=== PATIENT | male | born 2005 | race Two or more races ===

== ENCOUNTER 2023-08-22 10:14 | Outpatient (REF) | payer OTHER, SELFPAY ==
--- NOTE | 2023-08-22 | ECG_ITS ---
Test Reason : wpw, cp, dizziness Blood Pressure : / mmHG Vent. Rate : 073 BPM Atrial Rate : 073 BPM P-R Int : 124 ms QRS Dur : 080 ms QT Int : 336 ms P-R-T Axes : 068 075 030 degrees QTc Int : 370 ms Normal sinus rhythm with sinus arrhythmia Normal ECG No previous ECGs available Referred By: Chadd Reyes Electronically Signed By:Stanley Benavidez
--- NOTE | ~2023-08-22 | XR_ITS ---
EXAMINATION: XR CHEST CLINICAL INFORMATION: Chest pain and dizziness. Patient states he has metal in his neck from prior surgery. COMPARISON: None available. TECHNIQUE: 2 views of the chest were obtained. FINDINGS: The lungs are well inflated. No pleural effusion. Mild S-shaped thoracolumbar scoliosis. Heart size is normal. Radiodense metallic material partially included in images along the upper neck/thoracic inlet region, just to the right of midline. Correlation with clinical/surgical history recommended. No focal consolidation to suggest pneumonia. XR/XR chest 2V IMPRESSION: 1. No evidence of pneumonia. 2. Radiodense metallic material partially included in images along the upper neck/thoracic inlet region, just to the right of midline. Correlation with clinical/surgical history recommended.
== END 2023-08-22 10:15 | disposition home or self-care (01) ==
LOC: HO.XRAY 10:14
PROVIDERS: Visit Provider Family Medicine Adult Medicine
DX: R07.9 Chest pain, unspecified (principal)
CPT/HCPCS: 71046; 93005

== ENCOUNTER → 2023-08-22 10:29 | Outpatient (BNV) | payer OTHER, SELFPAY | PROVIDERS: Visit Provider Internal Medicine Cardiovascular Disease | DX: R07.9 Chest pain, unspecified (principal) | CPT/HCPCS: 93010 ==

== ENCOUNTER 2023-12-23 09:21 | Outpatient (AMB) | payer OTHER, SELFPAY ==
[2023-12-23 09:53] VITALS: BP 120/78; PULSE 79; BMI 16.8
--- NOTE | 2023-12-23 09:53 | MHC.OFFVIS ---
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 monika/cp Intake Note: New patient hx WPW c/o chest pain sometimes in the morning Consulting Solution Director Required: No Allergies No Known Allergies Allergy (Verified 12/23/23 09:57) Medication List - Last Reconciled 12/23/23 by Sheldon Muñoz MD albuterol sulfate 90 mcg/actuation (Ventolin HFA) inhalation HPI Comments Details: Thank you for referring Luis Alfredo in cardiology consultation today for symptoms of palpitation and chest pain. 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 At that time was having symptoms of palpitations. Since then he is done well but more recently he started having symptoms of palpitation again. Describes chest pain followed by rapid heart rate. The symptoms happen when he is playing basketball and also happen at rest. Symptoms started abruptly and can last for 5 minutes and stop abruptly. There is no clear trigger factors. Does not try to do anything to break his arrhythmia. 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 Patient denies any associated shortness of breath, lightheadedness, syncope. He describes episodes of lightheadedness when he gets up suddenly and has visual changes and has to usually sit down and symptoms resolved. He has never had a fainting episode. Denies any exertional chest pain, shortness of breath. He denies any use of ozhc-epd-rehrdbs medication, street drugs, excessive caffeine or alcohol intake. [facility] Surgical History History of cardiac radiofrequency ablation (RFA) Family History Father No problems noted. Mother No problems noted. Social History Patient Tobacco Use Status: Never used Tobacco Review of Systems Const Denies chills, Denies daytime sleepiness, Denies fatigue, Denies fever(s), Denies frequent falls, Denies poor appetite, Denies snoring, Denies stops breathing during sleep, Denies weakness, Denies weight gain and Denies weight loss Eyes Denies loss of vision ENT Denies dizziness and Denies hearing loss Card Denies chest pain, Denies claudication, Denies leg edema, Denies lightheadedness, Denies palpitations, Denies dyspnea, Denies dyspnea on exertion and Denies orthopnea Resp Denies cough, Denies excessive phlegm production, Denies dyspnea, Denies dyspnea on exertion, Denies snoring and Denies wheezing GI Denies abdominal pain, Denies hematochezia, Denies change in bowel habits, Denies nausea and Denies vomiting Denies dysuria and Denies urinary frequency Musc Denies arthralgias, Denies muscle weakness, Denies numbness and Denies other (frequent falls) Skin/Breast Denies nail changes and Denies rash Neuro Denies Abnormal speech present, Denies dizziness, Denies frequent falls, Denies loss of vision, Denies memory loss, Denies numbness and Denies weakness Psych Denies depression and Denies memory loss Endo Denies fatigue and Denies palpitations Romeo/Lymph Reports easy bruising and Reports other (anemia) Aller/Immun Denies wheezing Physical Exam Vital Signs: Last Vital Signs Pulse 79 12/23/23 09:53 BP 120/78 12/23/23 09:53 BMI result Body Mass Index 16.8 Const General: cooperative, comfortable, no acute distress, alert, awake and Physically active Nutritional Appearance: thin Orientation/consciousness: patient oriented x3 Limitations: no limitations HEENT Head: Yes normocephalic and Yes atraumatic Neck Neck: Yes trachea midline, Yes supple and Yes no JVD Resp Effort & Inspection: normal respiratory effort Auscultation: clear to auscultation bilaterally Cardio Jugular venous distension: no JVD Palpation: normal PMI Rate: regular rate Rhythm: regular rhythm Heart sounds: S1 normal heart sound present, S2 normal heart sound present, no click, no gallops, no murmurs and no rubs GI Auscultation: normal bowel sounds Skin General skin exam: no rashes or lesions noted Neuro General: patient oriented x3 and no focal motor deficits Speech: No Abnormal speech present Extrem General: Yes no clubbing, cyanosis or edema Psych Appearance: grossly normal Office Procedures EKG Details: EKG today shows normal sinus rhythm normal EKG with normal axis and normal intervals with no preexcitation [id number], Complete Assessment & Plan Assessment & Plan (1) Palpitations: Code(s): R00.2 - Palpitations Category: Medical Plan: Symptoms of palpitation this young man which has sudden onset suggestive SVT. Less likely atrial fibrillation. Treatment based on the diagnosis. Would suggest a 14 day Holter monitor to assess for the symptoms. He has associated chest pain although likelihood of myocardial ischemia is extremely low. Would suggest exercise stress test to evaluate for exercise-induced arrhythmias well. Also obtain echocardiogram to evaluate for any structural changes which can be associated with WPW syndrome in the past although in the past his echocardiogram have been benign. His orthostatic lightheadedness appear to be due to relative hypovolemia. He is advised to increase his water and salt intake. Orthostatic precautions were discussed. Till we perform full testing I would avoid participating in any strenuous physical activity and sports such as basketball. He is also advised to avoid stimulants such as caffeine, alcohol and any street drugs. He understands and agrees. Will follow up in the clinic in 6 weeks time, sooner p.r.n.. Thank you for allowing me to partake in his care Orders: Orders CA echo transthoracic complete Today R00.2 - Palpitations CA stress test Today R00.2 - Palpitations ECG 14 day holter monitor Today R00.2 - Palpitations Coding Level of Care Code New Pt Level 4 (18998) Diagnoses Palpitations R00.2 CPT Codes EKG - CPT: 69378-[id number], Complete ([id number])
== END 2023-12-23 10:28 | disposition home or self-care (01) ==
PROVIDERS: Visit Provider Internal Medicine Cardiovascular Disease
DX: R00.2 Palpitations (principal)
CPT/HCPCS: 93010; 99204

== ENCOUNTER → 2023-12-23 09:21 | Outpatient (BNVA) | payer OTHER, SELFPAY | PROVIDERS: Visit Provider Internal Medicine Cardiovascular Disease | DX: R00.2 Palpitations (principal) | CPT/HCPCS: 93005; 99202 ==

== ENCOUNTER → 2023-12-30 13:28 | Outpatient (REF) | payer OTHER, SELFPAY ==
--- NOTE | 2023-12-30 13:34 | HM_ITS ---
* Total monitoring time about 16 days. * Underlying rhythm is sinus with an average rate of 83/Min. Some strips with ST elevation suggestive of early repolarization. Change in QRS morphology in different strips of uncertain significance. * Sinus tachycardia about 16% of the time. * No significant supraventricular or ventricular ectopy. * No significant pauses or AV blocks. * No patient markers. * Diary entries during signal loss. MTDD
== END ==
LOC: HO.CARD 13:28
PROVIDERS: Visit Provider Internal Medicine Cardiovascular Disease
DX: R00.2 Palpitations (principal)
CPT/HCPCS: 93246

== ENCOUNTER → 2023-12-30 13:34 | Outpatient (BNV) | payer OTHER, SELFPAY | PROVIDERS: Visit Provider Internal Medicine | DX: R00.0 Tachycardia, unspecified (principal) | CPT/HCPCS: 93248 ==

== ENCOUNTER 2024-07-16 09:02 | Emergency (ER) | payer OTHER, SELFPAY ==
--- NOTE | ~2024-07-16 | XR_ITS ---
EXAMINATION: XR CHEST 2 VIEWS HISTORY: dyspnea COMPARISON: Comparison is made with the prior examination dated 08/22/2023. FINDINGS: PA and lateral views of the chest are submitted. The lungs are expanded and clear. There is no pleural effusion, pneumothorax, or pulmonary vascular congestion. The heart is normal in size. There is mild levoscoliosis of the lower thoracic spine. Again seen is metallic material in the right neck. XR/XR chest 2V IMPRESSION: No acute cardiopulmonary abnormality. Electronically signed by: Doug Resendez MD 07/16/2024 09:43 AM EST
[2024-07-16 09:14] VITALS: BP 104/74; PULSE 96; RESP 18; TEMP 36.8; O2SAT 99; BMI 16.3
--- NOTE | 2024-07-16 09:19 | ECG_ITS ---
Test Reason : dyspnea Blood Pressure : */* mmHG Vent. Rate : 85 BPM Atrial Rate : 85 BPM P-R Int : 128 ms QRS Dur : 88 ms QT Int : 322 ms P-R-T Axes : 71 69 15 degrees QTcB Int : 383 ms Normal sinus rhythm Nonspecific ST abnormality Abnormal ECG When compared with ECG of 22-Aug-2023 10:29, No significant change was found Referred By: Generic ED Physician Electronically Signed By: CRYSTAL DUMONT
--- NOTE | 2024-07-16 09:38 | ED_ITS ---
HPI - SOB/Dyspnea General Chief Complaint: Dyspnea Stated Complaint: SOB Bilateral rib pain Time Seen by Provider: 07/16/24 09:30 Source: patient Mode of arrival: ambulatory Limitations: no limitations History of Present Illness ED Provider: MARTI Benson HPI Narrative: This is a 18-year-old male past medical history significant for palpitations, Alexandru Parkinson White syndrome presenting to the emergency department with sudden onset chest pain and shortness breath that started this morning. Patient reports this woke him from his sleep reports he woke up and was having pain in his chest particularly with deep breathing the pain is in the substernal region and wraps around to his ribs and sometimes into his back. Reports pain is severe and he is quite uncomfortable. No sick contacts. He tells me that he has never had pain like this before. Denies numbness, tingling, fevers, chills, nausea, vomiting, abdominal pain, diarrhea Related Data Home Medications ?Medication ?Instructions ?Recorded ?Confirmed albuterol sulfate 90 mcg/actuation inhalation 12/23/23 12/23/23 aerosol inhaler (Ventolin HFA) Previous Rx's ?Medication ?Instructions ?Recorded ketorolac 10 mg tablet 10 mg PO TID PRN pain 5 days #15 07/16/24 tabs Allergies Allergy/AdvReac Type Severity Reaction Status Date / Time No Known Allergies Allergy Verified 07/16/24 09:17 Review of Systems 2 Review of Systems: Yes all other systems are reviewed and are negative [facility] Past Medical History Attestation statement: The following information was validated with the patient. Source: old records reviewed and nursing notes reviewed Surgical History History of cardiac radiofrequency ablation (RFA) Family History Family History Father No problems noted. Mother No problems noted. Social History Social History Patient Tobacco Use Status: Never used Tobacco Advance Directives: No Advance Directives Information Provided: No Physical Exam 2 Vital Signs: Vital Signs: Last Vital Signs Temp 98.1 F 07/16/24 14:25 Pulse 95 07/16/24 14:25 Resp 18 01/31/25 14:25 BP 110/76 07/16/24 14:25 Pulse Ox 100 07/16/24 14:25 O2 Del Method Room Air 07/16/24 14:25 BMI result Body Mass Index 16.3 vss Appearance: Alert.? Oriented X3.? No acute distress.? Head: Normocephalic, atraumatic, no step-offs or deformities Eyes: Pupils equal, round and reactive to light.? Neck: Normal inspection.? Neck supple.? CVS: Normal heart rate and rhythm.? Pulses normal.? Respiratory: No respiratory distress.? Breath sounds normal.? Abdomen: Soft and nontender.? Skin: Skin warm and dry.? Normal skin color.? Normal skin turgor.? Extremities: No lower extremity edema.? No calf ttp. 5/5 strength to bilateral upper and lower extremities Neuro: Oriented X 3.? No motor deficit.? No sensory deficit. CN 2-12 intact Course Reevaluation(s) Reevaluation #1: Chest x-ray no acute cardiopulmonary abnormalities. Flu, COVID, RSV negative. CBC with leukopenia. Chemistry pending. Time: 10:24 Reevaluation #2: Chemistry negative, troponin negative x2. D-dimer negative. Patient states he is feeling slightly better however his chest wall feels sore. This is likely costochondritis or noncardiac related chest pain. Advised for him to return with any new or worsening symptoms. Re-evaluated him no tachycardia unlikely WPW. Educated patient on diagnosis and treatment plan, answered all question, patient verbalizes understanding. At this time patient will be discharged home, advised to return with new or worsening symptoms. Educated on worrisome signs and symptoms and when to return. At this time I feel comfortable discharge home. Time: 14:28 Medications Administered Discontinued Medications Generic Name Dose Route Start Last Admin Trade Name Freq PRN Reason Stop Dose Admin Albuterol Sulfate 2.5 mg/ 5 mg 07/16/24 11:56 07/16/24 12:05 Albuterol Sulfate 2.5 mg INHALE 07/16/24 11:57 5 mg ONCE ONE Administration Ketorolac Tromethamine 30 mg 07/16/24 11:57 07/16/24 12:08 Ketorolac Tromethamine 30 Mg/Ml Vial IM 07/16/24 11:58 30 mg ONCE ONE Administration Medical Decision Making Medical Decision Making [facility] Narrative: 1022 18-year-old male presents with chest pain, shortness of breath particularly with deep breathing. History of Ecvzf-Kfytmovwz-Xbchy . The chest pain awoke him from his sleep and is still present. Physical exam with anterior chest wall tenderness to palpation. History and physical exam concerning for dysrhythmia versus pulmonary embolism versus WPW versus costochondritis as most likely. ACS will be ruled out although less likely. Noncardiac related chest pain also possible. Plan labs, imaging, EKG, troponin and D-dimer. Differential Diagnosis Differential Diagnoses: The differential diagnosis associated with the presentation includes (History and physical exam concerning for dysrhythmia versus pulmonary embolism versus WPW versus costochondritis as most likely. ACS will be ruled out although less likely. Noncardiac related chest pain also possible.) Admission/Observation Consideration of admission/observation: Escalation of care including admission/observation considered Lab Data [facility] Lab Attestation statement: I reviewed the patient's lab results. 07/16/24 10:01 07/16/24 10:01 Labs: Lab Results 07/16/24 07/16/24 07/16/24 Range/Units 09:31 10:01 12:54 WBC 4.2 L (4.8-10.8) X10*3/uL RBC 4.77 (4.60-5.80) X10*6/uL Hgb 15.0 (14.0-18.0) g/dl Hct 42.9 (42.0-52.0) % MCV 89.9 (80.0-98.0) fL MCH 31.4 (27.0-33.0) pg MCHC 35.0 (31.0-36.0) g/dl RDW 12.3 (11.0-16.0) % Plt Count 221 (160-400) X10*3/uL MPV 9.4 (9.4-12.4) fL Immature Gran % (Auto) 0.2 (0.0-0.4) % Neut % (Auto) 61.2 (45-73) % Lymph % (Auto) 27.3 (20-40) % Stone % (Auto) 8.6 (2-11) % Eos % (Auto) 1.7 (0-4) % Baso % (Auto) 1.0 (0-2) % Lymph # (Auto) 1.2 (1.2-4.9) X10*3/uL Stone # (Auto) 0.4 (0.1-1.2) X10*3/uL Eos # (Auto) 0.1 (0.0-0.4) X10*3/uL Baso # (Auto) 0.0 (0.0-0.2) X10*3/uL Abs Immat Gran (auto) 0.01 (0.00-0.03) X10*3/uL Absolute Neuts (auto) 2.6 (2.0-8.3) x10*3/uL Absolute Nucleated RBC 0.000 (0.0-0.012) X10*3/uL Nucleated RBC % (auto) 0.0 (0.0-0.2) /100WBC PT 11.6 (10.9-12.4) SEC INR 1.0 (0.9-1.1) D-Dimer High Sensitivty < 150 NG/ML Sodium 140 (135-145) mmol/L Potassium 4.2 (3.3-5.1) mmol/L Chloride 110 H (96-108) mmol/L Carbon Dioxide 24 (22-29) mmol/L Anion Gap 10 L (12-20) BUN 12 (9-16) mg/dL Creatinine 0.80 (0.5-1.4) mg/dL Estim Creat Clear Calc 107.5 Estimated GFR > 60 Random Glucose 83 (60-115) mg/dL Calcium 9.3 (8.4-10.2) mg/dL Magnesium 2.3 (1.6-2.6) mg/dL Total Bilirubin 0.5 (0.0-1.0) mg/dL AST 23 (5-37) U/L ALT 14 (0-40) U/L Alkaline Phosphatase 55 (39-117) U/L Troponin I High Sens < 2.7 < 2.7 (<3.5-35.0) ng/L Total Protein 7.3 (6.5-8.0) g/dL Albumin 4.4 (3.5-5.0) g/dL Influenza Type A (PCR) NEGATIVE (Negative) Influenza Type B (PCR) NEGATIVE (Negative) RSV RNA Qual (PCR) NEGATIVE (Negative) SARS-CoV-2 RNA (RT-PCR) NEGATIVE (Negative) Independent Interpretation I performed an independent interpretation of an: EKG (Ventricular rate of 85, IL normal, QRS normal, QT/QTC normal.) and Plain X-Ray (XR/XR chest 2V IMPRESSION: No acute cardiopulmonary abnormality.) Radiology Impression Discussion of test interpretation with radiology: I have reviewed the radiologist's reading. External Record Review External record reviewed: Inpatient record, Office record, Outpatient record, Prior outpatient labs, Prior outpatient radiology and Primary care record Chronic Conditions Patient?s care impacted by: Other (wpw) Critical Care Time Critical Care Time Critical Care Time: Yes Total Critical Care Time: 35 Attestation: I attest to this time spent taking care of the patient, obtaining history, physical, reviewing labs, imaging, treatment of patients condition +/- specialist/hospitalist consult Discharge Plan Discharge Clinical Impression: Chest pain, Shortness of breath, Anterior chest wall pain Patient Disposition: Home, Self-Care Instructions: Chest Pain (ED), Chest Wall Pain (ED) Additional Instructions: Take your medications as prescribed. If you were prescribed antibiotics today, it is important that you take your medication to their entirety, do not skip any doses, do not finish them early. Follow-up with your primary care provider this week. Return to the emergency department with new or worsening symptoms. Such as fevers, chills, chest pain, shortness of breath, nausea, vomiting, dizziness, headache, vision changes, lethargy In case of emergency call 911 Prescriptions: New ketorolac 10 mg tablet 10 mg PO TID PRN (Reason: pain) 5 Days Qty: 15 0RF Rx Instructions: Tolerated IM or IV in department No Action albuterol sulfate [Ventolin HFA] 90 mcg/actuation HFA aerosol inhaler inhalation Referrals: Physician,None [Primary Care Provider] - 2 days Stand Alone Forms: Work/School Release Interventions: ED Discharge Assessment Last Done: 07/16/24 14:28 Print Language: Croatian
[2024-07-16 10:09] LABS: MANUAL DIFF FLAG NO
[2024-07-16 10:11] LABS: Eosinophils Absolute Auto 0.1 X10*3/uL (0.0-0.4); Eosinophils Percent Auto 1.7 % (0-4); Hematocrit 42.9 % (42.0-52.0); Imm Gran Abs Auto 0.01 X10*3/uL (0.00-0.03); Imm Gran Pct Auto 0.2 % (0.0-0.4); Lymphocytes Absolute Auto 1.2 X10*3/uL (1.2-4.9); Lymphocytes Percent Auto 27.3 % (20-40); Mean Corpuscular Hemoglobin 31.4 pg (27.0-33.0); Mean Corpuscular Volume 89.9 fL (80.0-98.0); Mean Platelet Volume 9.4 fL (9.4-12.4); Monocytes Absolute Auto 0.4 X10*3/uL (0.1-1.2); Monocytes Percent Auto 8.6 % (2-11); Neutrophils Absolute Auto 2.6 x10*3/uL (2.0-8.3); Neutrophils Percent Auto 61.2 % (45-73); Platelet Count 221 X10*3/uL (160-400); Red Blood Count 4.77 X10*6/uL (4.60-5.80); Red Cell Distribution Width 12.3 % (11.0-16.0); White Blood Count 4.2 X10*3/uL (4.8-10.8)
[2024-07-16 10:14] LABS: Influenza A PCR NEGATIVE (Negative); Influenza B PCR NEGATIVE (Negative); Resp Syncy Virus RNA Qual PCR NEGATIVE (Negative); SARS COV2 PCR INHOUSE NEGATIVE (Negative)
--- OUTSIDE RECORDS SUMMARY | 2024-07-16 10:24 | XMS_ITS | Clinical Summary ---
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 30 tablet 05/11/2024 Active Active Problems No known active problems Encounters Date Type Department Care Team Description 05/11/2024 1:51 PM EST - 05/11/2024 3:[address] [facility] Emergency [address] [place] [address] COVID-19 (Primary Dx) Discharge Disposition: Home or Self Care from Last 3 Months Medical History Medical History Date Comments Asthma Dlwwh-Ddhwhurqt-Lkzjm syndrome Social History Tobacco Use Types Packs/Day Years Used Date Smoking Tobacco: Never Smokeless Tobacco: Never Tobacco Cessation:Counseling Given: Not Answered Alcohol Use Standard Drinks/Week Comments Never 0 (1 standard drink = 0.6 oz pur e alcohol) Sex and Gender Information Value Date Recorded Sex Assigned at Male 05/11/2024 2:01 PM EST Gender Identity Male 05/11/2024 2:01 PM EST Sexual Orientation Not on file Job Start Date Occupation Industry Not on file Not on file Not on file Obstetrics History Last Filed Vital Signs Vital Sign Reading Time Taken Comments Blood Pressure 107/81 05/11/2024 1:17 PM EST Pulse 90 05/11/2024 1:17 PM EST Temperature 37.4 ??C (99.3 ??F) 05/11/2024 1:17 PM ES T Respiratory Rate 20 05/11/2024 1:17 PM EST Oxygen Saturation - - Inhaled Oxygen Concentration - - Weight 49.9 kg (110 lb) 05/11/2024 1:17 PM EST Height 175.3 cm (5' 9 ) 05/11/2024 1:17 PM EST Body Mass Index 16.24 05/11/2024 1:17 PM EST Plan of Treatment Health Maintenance Due Date Last Done Comments Pneumococcal Vaccine: Pediatrics (0 to 5 Years) and At-Risk Patients (6 to 64 Years) (1 of 1 - PPSV23 or PCV20) 09/19/2009 12/24/2004, 04/27/2004, 02/03/2004, Additional history exists Annual Well Child Visit (3-21 years old) 05/19/2022 Depression Screening 05/19/2022 HIV Screening 05/19/2022 Hepatitis C Screening 05/19/2022 Social Influencers of Health Screening 05/19/2022 COVID-19 Vaccine ( season) 2024 11/07/2020, 10/16/2020 Influenza Vaccine (#1) 2024 05/24/2015, 2013 DTaP,Tdap,and Td Vaccines (7 - Td or Tdap) 05/24/2025 05/24/2015, 10/22/2007, 12/24/2004, Additional history exists HIB Vaccines Completed 12/24/2004, 01/15, 2003 IPV Vaccines Completed 10/22/2007, 04/16, 02/03/2004, Additional history exists MMR Vaccines Completed 11/24/2007, 10/16/2004 Varicella Vaccines Completed 11/24/2007, 10/16/2004 Hepatitis B Vaccines Completed 04/14/2014, 01/11/2014, 12/10/2013, Additional history exists Hepatitis A Vaccines Completed 05/19/2014, 11/18/19 14 Meningococcal ACWY Vaccine Aged Out 05/24/2015 N o longer eligible based on patient's age to complete this topic HPV Vaccines Completed 01/04/2016, 02/2016, 05/24/2015 RSV Immunization Patients Under 20 months Aged Out No longer eligible based on patient's age to complete this topic Procedures Procedure Name Priority Date/Time Associated Diagnosis Comments RESPIRATORY VIRUS PANEL MOLECULAR STUDY STAT 05/11/2024 1:24 PM EST from Last 3 Months Results * (ABNORMAL) Respiratory virus panel molecular study (05/11/2024 1:24 PM EST) Pathologist [facility] Adenovirus Detection by PCR Not Detected Not Detected LAB MICROBIOLOGY METHOD 05/11/2024 2:35 PM EST [facility] Influenza A PCR Not Detected Not Detected LAB MICROBIOLOGY METHOD 05/11/2024 2:35 PM EST [facility] Influenza B PCR Not Detected Not Detected LAB MICROBIOLOGY METHOD 05/11/2024 2:35 PM EST [facility] Coronavirus 229E Not Detected Not Detected LAB MICROBIOLOGY METHOD 05/11/2024 2:35 PM EST [facility] Coronavirus HKU1 Not Detected Not Detected LAB MICROBIOLOGY METHOD 05/11/2024 2:35 PM [facility] Coronavirus OC43 Not Detected Not Detected LAB MICROBIOLOGY METHOD 05/11/2024 2:35 PM [facility] Coronavirus NL63 Not Detected Not Detected LAB MICROBIOLOGY METHOD 05/11/2024 2:35 PM [facility] Parainfluenza Virus 1 Not Detected Not Detected LAB MICROBIOLOGY METHOD 05/11/2024 2:35 PM [facility] Parainfluenza Virus 2 Not Detected Not Detected LAB MICROBIOLOGY METHOD 05/11/2024 2:35 PM [facility] Parainfluenza Virus 3 Not Detected Not Detected LAB MICROBIOLOGY METHOD 05/11/2024 2:35 PM [facility] Parainfluenza Virus 4 Not Detected Not Detected LAB MICROBIOLOGY METHOD 05/11/2024 2:35 PM [facility] RSV PCR Not Detected Not Detected LAB MICROBIOLOGY METHOD 05/11/2024 2:35 PM [facility] Human Metapneumovirus A and B Not Detected Not Detected LAB MICROBIOLOGY METHOD 05/11/2024 2:35 PM [facility] Rhinovirus/Entero virus Not Detected Not Detected LAB MICROBIOLOGY METHOD 05/11/2024 2:35 PM EST [facility] Bordetella pertussis Not Detected Not Detected LAB MICROBIOLOGY METHOD 05/11/2024 2:35 PM EST [facility] Bordetella parapertussis Not Detected Not Detected LAB MICROBIOLOGY METHOD 05/11/2024 2:35 PM [facility] Mycoplasma pneumo by PCR Not Detected Not Detected LAB MICROBIOLOGY METHOD 05/11/2024 2:35 PM EST [facility] Chlamydia pneumoniae Not Detected Not Detected LAB MICROBIOLOGY METHOD 05/11/2024 2:35 PM [facility] SARS COV-2 Detected(A ) Not Detected LAB MICROBIOLOGY METHOD 05/11/2024 2:35 PM [facility] Swab Both anterior nares / Unknown Non-blood Collection / Unknown 05/11/2024 1:24 PM EST 05/11/2024 1:28 PM EST [facility] - 05/11/2024 2:35 PM EST Testing was performed using the [employer] Respiratory Pathogen PCR Assay. All results must be correlated with the clinical findings. Results should not be used as the sole basis for diagnosis. False Negative results may occur from the presence of sequence variants in the region targeted by the assay or the presence of inhibitors. Results may be affected by concurrent antiviral/antimicrobial therapy or levels of organisms that are below the limit of detection. Omar Tomlinson DO LAB MICROBIOLOGY - GENERAL ORDERABLES [facility] [address] [place] [address], from Last 3 Months Care Teams Kick Press Operator Relationship Specialty Start Date End Date Physician, No Pcp PCP - General 05/11/24
[2024-07-16 10:35] LABS: Alanine Aminotransferase 14 U/L (0-40); Albumin Level 4.4 g/dL (3.5-5.0); Alkaline Phosphatase 55 U/L (39-117); Anion Gap 10 (12-20); Aspartate Amino Transferase 23 U/L (5-37); Bilirubin Total 0.5 mg/dL (0.0-1.0); Blood Urea Nitrogen 12 mg/dL (9-16); Calcium 9.3 mg/dL (8.4-10.2); Carbon Dioxide 24 mmol/L (22-29); Chloride 110 mmol/L (96-108); Creatinine Clr Calc Pharmacy 107.5; Estimated Glomerular Filt Rate > 60; Glucose Random 83 mg/dL (60-115); Magnesium 2.3 mg/dL (1.6-2.6); Potassium 4.2 mmol/L (3.3-5.1); Sodium 140 mmol/L (135-145); Total Protein 7.3 g/dL (6.5-8.0)
[2024-07-16 10:36] LABS: Prothrombin Time 11.6 SEC (10.9-12.4)
[2024-07-16 10:40] LABS: D Dimer High Sensitivity < 150 NG/ML
[2024-07-16 10:44] LABS: Troponin-I High Sensitivity < 2.7 ng/L (<3.5-35.0)
[2024-07-16 12:02] VITALS: BP 116/70; PULSE 88; RESP 18; TEMP 36.5; O2SAT 100
[2024-07-16] MEDS: Albuterol Sulfate 2.5 MG, Albuterol Sulfate (0.083%) 2.5 MG 5 MG INHALE (12:05)
[2024-07-16 12:07] VITALS: PULSE 88; RESP 18; O2SAT 99
[2024-07-16] MEDS: Ketorolac Tromethamine 30 MG/ML VIAL IM (12:08)
--- NOTE | 2024-07-16 12:08 | PC.NURSE ---
pt receiving breathing tx at this time. medication administered per provider order. effectiveness pending.
--- NOTE | 2024-07-16 12:51 | PC.NURSE ---
repeat troponin obtained/sent to lab by tech.
[2024-07-16 13:34] LABS: Troponin-I High Sensitivity < 2.7 ng/L (<3.5-35.0)
[2024-07-16 14:25] VITALS: BP 110/76; PULSE 95; RESP 18; TEMP 36.7; O2SAT 100
[2024-07-16 14:28] VITALS: BP 110/76; PULSE 95; RESP 18; TEMP 36.7; O2SAT 100
== END 2024-07-16 14:35 | disposition home or self-care (01) ==
PROVIDERS: Physician Assistant; Emergency Provider Emergency Medicine
DX: R06.02 Shortness of breath (principal); R00.2 Palpitations; R07.81 Pleurodynia; R94.31 Abnormal electrocardiogram [ECG] [EKG]; Z03.818 Encounter for observation for suspected exposure to other biological agents ruled out; Z79.899 Other long term (current) drug therapy
CPT/HCPCS: 0241U; 36415; 71046; 80053; 83735; 84484; 85025; 85379; 85610; 93005; 94640; 96372; 99284; J1885

== ENCOUNTER → 2024-07-16 09:19 | Outpatient (BNV) | payer OTHER, SELFPAY | PROVIDERS: Emergency Provider Emergency Medicine; Visit Provider Internal Medicine | DX: R94.31 Abnormal electrocardiogram [ECG] [EKG] (principal) | CPT/HCPCS: 93010 ==

== ENCOUNTER → 2024-07-16 09:19 | Outpatient (BNV) | payer OTHER, SELFPAY | PROVIDERS: Emergency Provider Emergency Medicine; Visit Provider Radiology Diagnostic Radiology | DX: R06.00 Dyspnea, unspecified (principal) | CPT/HCPCS: 71046 ==

== ENCOUNTER 2024-09-29 13:05 | Emergency (ER) | payer OTHER, SELFPAY ==
--- NOTE | ~2024-09-29 | XR_ITS ---
EXAMINATION: XR CHEST 2 VIEWS HISTORY: CP COMPARISON: Comparison is made with the prior examination dated 07/16/2024. FINDINGS: PA and lateral views of the chest are submitted. The lungs are expanded and clear. There is no pleural effusion, pneumothorax, or pulmonary vascular congestion. The heart is normal in size. The bones are intact. Again seen are coils in the right neck. XR/XR chest 2V IMPRESSION: No acute cardiopulmonary abnormality. Electronically signed by: Doug Resendez MD 09/29/2024 01:51 PM EDT
[2024-09-29 13:09] VITALS: BP 121/75; PULSE 89; RESP 16; TEMP 36.7; O2SAT 98; BMI 17.8
--- NOTE | 2024-09-29 13:14 | ED.GENADULT ---
HPI - General Adult General Chief complaint: Back Pain/Injury Stated complaint: Rib Pain (both sides), Back/Spine Pain Time Seen by Provider: 09/29/24 14:41 Source: patient, RN notes reviewed and old records reviewed Mode of arrival: ambulatory Limitations: no limitations History of Present Illness ED Provider: Easton HPI narrative: Patient is a 19-year-old male with history of Ouhjt-Aasobaogs-Dgdhv syndrome presenting to the emergency department with complaint of bilateral posterior rib pain for the past 2 months. He denies any URI symptoms or coughing prior to onset of rib pain. Denies recent fevers. Denies shortness of breath. Denies current chest pain or palpitations. Denies shortness of breath. Reports that this morning he developed lower back pain as well. Denies radiation of pain to lower extremities. Denies saddle anesthesia or bowel or bladder incontinence. Denies any urinary symptoms. Denies fall or other trauma. States he does not currently have a primary care provider. MD complaint: rib pain Onset (ago): month(s) Related Data Home Medications ?Medication ?Instructions ?Recorded ?Confirmed albuterol sulfate 90 mcg/actuation inhalation 12/23/23 12/23/23 aerosol inhaler (Ventolin HFA) Previous Rx's ?Medication ?Instructions ?Recorded ketorolac 10 mg tablet 10 mg PO TID PRN pain 5 days #15 07/16/24 tabs lidocaine 5 % topical patch 1 patch topical DAILY #15 ea 09/29/24 naproxen 500 mg tablet 500 mg PO BID #14 tabs 09/29/24 Allergies Allergy/AdvReac Type Severity Reaction Status Date / Time No Known Allergies Allergy Verified 09/29/24 13:12 Review of Systems Review of Systems: As per HPI Yes all other systems are reviewed and are negative Constitutional: Constitutional: Reports as per HPI [facility] Past Medical History Surgical History History of cardiac radiofrequency ablation (RFA) Family History Family History Father No problems noted. Mother No problems noted. Social History Social History Patient Tobacco Use Status: Never used Tobacco Advance Directives: No Advance Directives Information Provided: Yes Physical Exam ED Vital Signs: Vital Signs - 24 hr 09/29/24 13:09 09/29/24 14:49 Temperature 98.1 F Pulse Rate 89 87 Respiratory Rate 16 14 Blood Pressure 121/75 131/76 Pulse Oximetry 98 100 Oxygen Delivery Method Room Air Room Air BMI result Body Mass Index 17.8 Vital signs have been reviewed and appear to be correct. Blood pressure normal. Heart rate normal. Respiratory rate normal. Temperature normal. Oxygen saturation normal. Const General: cooperative, healthy appearing and no acute distress Orientation/consciousness: oriented to person, oriented to place, oriented to time and patient oriented x3 Limitations: no limitations HENMT Head: Yes normocephalic and Yes atraumatic Ears: external ears normal General nose exam: Normal external nose present Face and sinus: Yes face symmetric Mouth: oropharynx normal and moist mucous membranes Throat: Yes uvula midline Eyes Pupils: Equal, round and reactive pupils present Neck Neck: Yes normal visual inspection and Yes supple Chest Chest palpation & inspection: normal inspection of the chest and tenderness rib (bilateral ) mid-scapular line involving the 8th rib, involving the 9th rib and involving the 10th rib Resp Effort & Inspection: normal respiratory effort and able to speak in complete sentences Auscultation: clear to auscultation bilaterally Cardio Rate: regular rate Rhythm: regular rhythm Heart sounds: S1 normal heart sound present and S2 normal heart sound present GI Palpation (GI): Soft to palpation and nontender Auscultation: normoactive bowel sounds General: Yes no CVA tenderness Back/Spine/Pelvis Back: no CVA tenderness Cervical Spine: normal cervical lordosis, cervical ROM normal, No Cervical spine tenderness and No step off deformity Thoracic/Lumbar Spine: thoracic and lumbar spine normal to inspection, thoraco-lumbar ROM normal, paraspinal muscle tenderness bilaterally in the upper lumbar, No thoracic spinal tenderness and No lumbar spinal tenderness Skin General skin exam: elasticity normal and turgor normal Neuro General: oriented to person, oriented to place, oriented to time, patient oriented x3, moves all extremities, no focal motor deficits and CN's II-XI intact bilaterally Cranial nerves: Yes Equal, round and reactive pupils present Cognition (Neuro): normal cognition Extrem General: Yes full ROM, Yes no pedal edema and Yes no calf tenderness Psych Mental Status: mental status grossly normal Affect: normal affect Thought process: Normal thought process present Course Course Course Narrative: This is an RME: Additional HPI, ROS, PE not included below will be deferred to primary provider. RME assessment and note performed by: Opal Long PA-C 18-year-old male past medical history significant for palpitations, Alexandru Parkinson White syndrome presenting to the emergency department with bilateral rib pain, and chest pain. Patient states that this has been ongoing for 2 months. Patient was seen here several months ago and states that the pain has been constant since. He has been taking lqsl-ocz-vwxdnfc medications which has provided him with some relief. He had an appointment for a new primary care physician however he missed the appointment because he over slept. Denies any recent heavy lifting, falls, injuries. No cough. Patient well-appearing, appears to be under no acute distress, vital signs within normal limits. Plan: Labs, chest x-ray, further ER evaluation needed. Medical Decision Making Medical Decision Making [facility] Narrative: Patient is a 19-year-old male with history of Tbmsh-Bogicoehg-Bkbic syndrome presenting to the emergency department with complaint of bilateral posterior rib pain for the past 2 months. On exam patient is awake, A+Ox3, VS WNL, afebrile, normal neurological exam without focal deficits, physical exam findings as above. Given reported symptoms and physical exam findings, initial differential includes but is not limited to costochondritis, muscle strain, bronchitis, pneumonia. PERC 0, do not suspect PE. Unlikely ACS. Labs without evidence of leukocytosis, negative troponin, otherwise unremarkable. X-ray chest notable for no acute abnormalities. My interpretation is in agreement with the radiologist's interpretation. Results discussed with patient and all questions answered. Will discharge with prescription for naproxen and lidocaine patches. Will provide patient with resources for obtaining a PCP. Return precautions discussed. Patient verbalized understanding of and agreement with plan. Differential Diagnosis Differential Diagnoses: The differential diagnosis associated with the presentation includes as per [facility] Admission/Observation Consideration of admission/observation: Escalation of care including admission/observation considered Patient would have been admitted to the hospital had their work up had any findings where hospital admission was appropriate and their clinical presentation warranted hospital admission. Lab Data [facility] Lab Attestation statement: I reviewed the patient's lab results. As per [facility] 09/29/24 13:34 09/29/24 13:34 Labs: Lab Results 09/29/24 09/29/24 Range/Units 13:34 13:37 WBC 5.1 (4.8-10.8) X10*3/uL RBC 5.01 (4.60-5.80) X10*6/uL Hgb 15.7 (14.0-18.0) g/dl Hct 44.9 (42.0-52.0) % MCV 89.6 (80.0-98.0) fL MCH 31.3 (27.0-33.0) pg MCHC 35.0 (31.0-36.0) g/dl RDW 12.3 (11.0-16.0) % Plt Count 234 (160-400) X10*3/uL MPV 9.6 (9.4-12.4) fL Immature Gran % (Auto) 0.4 (0.0-0.4) % Neut % (Auto) 56.4 (45-73) % Lymph % (Auto) 30.4 (20-40) % Lewis % (Auto) 8.9 (2-11) % Eos % (Auto) 2.9 (0-4) % Baso % (Auto) 1.0 (0-2) % Lymph # (Auto) 1.6 (1.2-4.9) X10*3/uL Lewis # (Auto) 0.5 (0.1-1.2) X10*3/uL Eos # (Auto) 0.2 (0.0-0.4) X10*3/uL Baso # (Auto) 0.1 (0.0-0.2) X10*3/uL Abs Immat Gran (auto) 0.02 (0.00-0.03) X10*3/uL Absolute Neuts (auto) 2.9 (2.0-8.3) x10*3/uL Absolute Nucleated RBC 0.000 (0.0-0.012) X10*3/uL Nucleated RBC % (auto) 0.0 (0.0-0.2) /100WBC Sodium 141 (135-145) mmol/L Potassium 3.9 (3.3-5.1) mmol/L Chloride 109 H (96-108) mmol/L Carbon Dioxide 27 (22-29) mmol/L Anion Gap 9 L (12-20) BUN 16 (9-16) mg/dL Creatinine 0.85 (0.5-1.4) mg/dL Estim Creat Clear Calc 106.3 Estimated GFR > 60 Random Glucose 80 (60-115) mg/dL Calcium 9.2 (8.4-10.2) mg/dL Total Bilirubin 0.6 (0.0-1.0) mg/dL Direct Bilirubin 0.2 (0.0-0.5) mg/dL AST 26 (5-37) U/L ALT 17 (0-40) U/L Alkaline Phosphatase 73 (39-117) U/L Troponin I High Sens < 2.7 (<3.5-35.0) ng/L Total Protein 7.3 (6.5-8.0) g/dL Albumin 4.6 (3.5-5.0) g/dL Influenza Type A (PCR) NEGATIVE (Negative) Influenza Type B (PCR) NEGATIVE (Negative) RSV RNA Qual (PCR) NEGATIVE (Negative) SARS-CoV-2 RNA (RT-PCR) NEGATIVE (Negative) Independent Interpretation I performed an independent interpretation of an: Plain X-Ray Interpretation: No acute abnormalities chest x-ray Radiology Impression Discussion of test interpretation with radiology: I have reviewed the radiologist's reading. Radiologist Impression: XR/XR chest 2V IMPRESSION: No acute cardiopulmonary abnormality. External Record Review External record reviewed: Inpatient record, Office record and Outpatient record Prescription Management I considered prescription management with: Pain Medication Discharge Plan Discharge Clinical Impression: Rib pain on left side, Lumbar strain, Rib pain on right side Patient Disposition: Home, Self-Care Instructions: Low Back Strain (ED), Back Pain (ED) Additional Instructions: You were evaluated in the emergency department today for the back pain. Your evaluation including labs and x-ray was reassuring. It is important that you establish care with a primary care provider for follow-up. Use the resources provided on your discharge paperwork to set up an appointment with a new primary care provider. You are being prescribed naproxen to decrease inflammation as well as topical lidocaine patches. You can apply the patches for up to 12 hours in a 24 hour period. Do not apply heat directly over the patches. Return to the emergency department if you develop chest pain, shortness of breath or difficulty breathing, fever, or any other new or concerning symptoms. Prescriptions: New naproxen 500 mg tablet 500 mg PO BID Qty: 14 0RF lidocaine 5 % adhesive patch,medicated 1 patch topical DAILY Qty: 15 0RF Rx Instructions: leave on most painful area for up to 12 hrs No Action ketorolac 10 mg tablet 10 mg PO TID PRN (Reason: pain) 5 Days Qty: 15 0RF Rx Instructions: Tolerated IM or IV in department albuterol sulfate [Ventolin HFA] 90 mcg/actuation HFA aerosol inhaler inhalation Referrals: [facility] Family Medicine [Provider Group] [facility] Primary Care, Art [Provider Group] [facility] Primary Care, Sheila [Provider Group] [facility] Walk In Care [Provider Group] Stand Alone Forms: Work/School Release Print Language: [place]
--- NOTE | 2024-09-29 13:17 | ECG_ITS ---
Test Reason : BACK PAIN Blood Pressure : */* mmHG Vent. Rate : 87 BPM Atrial Rate : 87 BPM P-R Int : 124 ms QRS Dur : 80 ms QT Int : 322 ms P-R-T Axes : 66 70 3 degrees QTcB Int : 387 ms Normal sinus rhythm Normal ECG When compared with ECG of 16-Jul-2024 09:27, No significant change was found Referred By: Opal Ledezma Electronically Signed By: JAIDA SANCHEZ MD
[2024-09-29 13:41] LABS: MANUAL DIFF FLAG NO
[2024-09-29 13:43] LABS: Basophils Absolute Auto 0.1 X10*3/uL (0.0-0.2); Eosinophils Absolute Auto 0.2 X10*3/uL (0.0-0.4); Eosinophils Percent Auto 2.9 % (0-4); Hematocrit 44.9 % (42.0-52.0); Hemoglobin 15.7 g/dl (14.0-18.0); Imm Gran Abs Auto 0.02 X10*3/uL (0.00-0.03); Imm Gran Pct Auto 0.4 % (0.0-0.4); Lymphocytes Absolute Auto 1.6 X10*3/uL (1.2-4.9); Lymphocytes Percent Auto 30.4 % (20-40); Mean Corpuscular Hemoglobin 31.3 pg (27.0-33.0); Mean Corpuscular Volume 89.6 fL (80.0-98.0); Mean Platelet Volume 9.6 fL (9.4-12.4); Monocytes Absolute Auto 0.5 X10*3/uL (0.1-1.2); Monocytes Percent Auto 8.9 % (2-11); Neutrophils Absolute Auto 2.9 x10*3/uL (2.0-8.3); Neutrophils Percent Auto 56.4 % (45-73); Platelet Count 234 X10*3/uL (160-400); Red Blood Count 5.01 X10*6/uL (4.60-5.80); Red Cell Distribution Width 12.3 % (11.0-16.0); White Blood Count 5.1 X10*3/uL (4.8-10.8)
[2024-09-29 14:01] LABS: Alanine Aminotransferase 17 U/L (0-40); Albumin Level 4.6 g/dL (3.5-5.0); Alkaline Phosphatase 73 U/L (39-117); Anion Gap 9 (12-20); Aspartate Amino Transferase 26 U/L (5-37); Bilirubin Direct 0.2 mg/dL (0.0-0.5); Bilirubin Total 0.6 mg/dL (0.0-1.0); Blood Urea Nitrogen 16 mg/dL (9-16); Calcium 9.2 mg/dL (8.4-10.2); Carbon Dioxide 27 mmol/L (22-29); Chloride 109 mmol/L (96-108); Creatinine Clr Calc Pharmacy 106.3; Estimated Glomerular Filt Rate > 60; Glucose Random 80 mg/dL (60-115); Potassium 3.9 mmol/L (3.3-5.1); Sodium 141 mmol/L (135-145); Total Protein 7.3 g/dL (6.5-8.0)
[2024-09-29 14:09] LABS: Troponin-I High Sensitivity < 2.7 ng/L (<3.5-35.0)
[2024-09-29 14:19] LABS: Influenza A PCR NEGATIVE (Negative); Influenza B PCR NEGATIVE (Negative); Resp Syncy Virus RNA Qual PCR NEGATIVE (Negative); SARS COV2 PCR INHOUSE NEGATIVE (Negative)
[2024-09-29 14:49] VITALS: BP 131/76; PULSE 87; RESP 14; O2SAT 100
[2024-09-29 16:02] VITALS: BP 131/76; PULSE 87; RESP 14; TEMP -17.7; TEMP 0; O2SAT 100
--- OUTSIDE RECORDS SUMMARY | 2024-09-29 17:10 | XMS_ITS | Clinical Summary ---
Author Organization [facility] Address [address] [place] [address] Phone Care Team Providers Care Trackwalker Name Role Phone Physician, No Pcp Primary Care Provider Unavaila ble Allergies No known active allergies Medications ibuprofen (ADVIL,MOTRIN) 600 mg tablet Take 1 tablet (600 mg total) by mouth every 6 (six) hours if needed for mild pain for up to 30 doses. 30 tablet 05/11/2024 Active Active Problems No known active problems Medical History Medical History Date Comments Asthma Ldozn-Gtytejykm-Exgrh syndrome Social History Tobacco Use Types Packs/Day Years Used Date Smoking Tobacco: Never Smokeless Tobacco: Never Tobacco Cessation:Counseling Given: Not Answered Alcohol Use Standard Drinks/Week Comments Never 0 (1 standard drink = 0.6 oz pur e alcohol) Sex and Gender Information Value Date Recorded Sex Assigned at Male 05/11/2024 2:01 PM EST Legal Sex Male 9:09 AM EST Gender Identity Male 05/11/2024 2:01 PM EST Sexual Orientation Not on file Obstetrics History Last Filed [...] to 64 Years) (1 of 1 - PPSV23) 09/19/2009 12/24/2004, 04/27/2004, 02/03/2004, Additional history exists Meningococcal B Vaccine (1 of 2 - Standard) 2019 Annual Well Child Visit (3-21 years old) 05/19/2022 Depression Screening 05/19/2022 HIV Screening 05/19/2022 Hepatitis C Screening 05/19/2022 Social Influencers of Health Screening 05/19/2022 COVID-19 Vaccine ( - season) 2024 11/07/2020, 10/16/2020 Influenza Vaccine (Season Ended) 2025 05/24/2015, 03/15/2014 DTaP,Tdap,and Td Vaccines (7 - Td or [...] on patient's age to complete this topic Insurance MEDICAID - [place] [employer] [place] [employer]AGE Care Teams Trackwalker Relationship Specialty Start Date End Date Physician, No Pcp PCP - General 05/11/24
--- OUTSIDE RECORDS SUMMARY | 2024-09-29 17:10 | XMS_ITS | Patient Health Record ---
Author Organization [facility] Address [address] [place] [address], [place] [id number] Care Team Providers Care Rib Cloth Knitter Name Role Phone No, PCP [facility] Unavailable [phone] Reason For Referral No Information Plan Of Treatment No Information Insurance Providers Payer Name Payer Address Payer Phone Subscriber Number Group Number Insured Name Patient Relationship to Insured Coverage Start Date Coverage End Date [facility] [employer] [address] [place] [address] [place] [phone] [id number] Zbigniew Adam Self - patient is the insured 3
== END 2024-09-29 16:03 | disposition home or self-care (01) ==
PROVIDERS: Physician Assistant Medical; Emergency Provider Emergency Medicine
DX: R07.81 Pleurodynia (principal); S39.012A Strain of muscle, fascia and tendon of lower back, initial encounter; X58.XXXA Exposure to other specified factors, initial encounter; Y93.9 Activity, unspecified; Y92.9 Unspecified place or not applicable; Y99.9 Unspecified external cause status
CPT/HCPCS: 0241U; 71046; 80048; 80076; 84484; 85025; 93005; 99283; 99284

== ENCOUNTER → 2024-09-29 13:17 | Outpatient (BNV) | payer OTHER, SELFPAY | PROVIDERS: Visit Provider Radiology Diagnostic Radiology | DX: R07.9 Chest pain, unspecified (principal) | CPT/HCPCS: 71046 ==

== ENCOUNTER → 2024-09-29 13:17 | Outpatient (BNV) | payer OTHER, SELFPAY | PROVIDERS: Emergency Provider Emergency Medicine; Visit Provider Internal Medicine Cardiovascular Disease | DX: M54.9 Dorsalgia, unspecified (principal) | CPT/HCPCS: 93010 ==